=== PATIENT | male | born 1945 | race African-American/Black ===

== ENCOUNTER 2019-12-05 22:24 | Inpatient (IN) | payer OTHER ==
[~2019-12-05] VITALS: Ht 170.2 cm; Wt 78.0 kg
[2019-12-06 00:14] LABS: Basophils # (auto) 0.1 10 ^3/uL (0-0.2); Basophils % (auto) 0.7 % (0.0-2.0); Eosinophils # (auto) 0 10 ^3/uL (0-0.8); Eosinophils % (auto) 0.2 % (0.0-7.0); Hematocrit 35.7 % (41.0-53.0); Hemoglobin 12.1 g/dL (13.5-17.5); Lymphocytes % (auto) 13.4 % (10.0-50.0); Mean Corpuscular Hemoglobin 31.6 pg (28.0-32.0); Mean Corpuscular Hgb Conc. 33.9 g/dL (32.0-36.0); Mean Corpuscular Volume 93.3 fL (80.0-100.0); Monocytes # (auto) 0.4 10 ^3/uL (0-1.3); Monocytes % (auto) 5.8 % (0.0-12.0); Neutrophils # (auto) 6.1 10 ^3/uL (1.6-8.6); Neutrophils % (auto) 79.9 % (37.0-80.0); Nucleated Red Blood Cells % 0.3 %; Platelet Count (auto) 128 10^3/uL (140-450); Red Blood Cells 3.83 10^6/uL (4.5-5.90); White Blood Cell 7.6 10^3/uL (4.4-10.8)
[2019-12-06 00:37] LABS: Alanine Aminotransferase 36 U/L (16-61); Albumin 2.4 g/dL (3.4-5.0); Anion Gap 9 (5-15); BUN/Creatinine Ratio 15.4; Blood Urea Nitrogen 51 mg/dL (7-18); Calcium 8.1 mg/dL (8.5-10.1); Carbon Dioxide 22 mmol/L (21-32); Chloride 103 mmol/L (98-107); GFR African American 24 mL/min; GFR Non-African American 19 mL/min; Glucose 98 mg/dL (74-106); Lactic Acid w/Reflex 2.2 mmol/L (0.4-2.0); Lipase 24 U/L (73-393); Magnesium 2.3 mg/dL (1.6-2.6); Potassium 4.6 mmol/L (3.5-5.1); Sodium 134 mmol/L (136-145)
[2019-12-06 00:52] LABS: Alkaline Phosphatase 79 U/L (45-117); Aspartate Aminotransferase 34 U/L (15-37); Bilirubin, Total 0.5 mg/dL (0.2-1.0); Total Protein 8.2 g/dL (6.4-8.2)
[2019-12-06 01:21] LABS: Lactate Dehydrogenase 261 U/L (87-241)
[2019-12-06 01:23] LABS: CRP High Sensitivity > 19 mg/dL (< 0.3)
[2019-12-06] MEDS ORDERED: AZITHROMYCIN 500MG/ 250ML 250 ML IV ONE (01:45)
[2019-12-06] MEDS ORDERED: SODIUM CHLORIDE 0.9% 1,000 ML IV ONE (02:00)
[2019-12-06 02:09] LABS: Urine Amorphous Crystal MOD /hpf (None Seen); Urine Bacteria MOD /hpf (None Seen); Urine Blood 1+ /uL (Negative); Urine Hyaline Cast FEW /lpf (0 - 2); Urine Mucus FEW (None Seen); Urine Specific Gravity 1.015 (1.001-1.035); Urine WBC 84 /hpf (0 - 3)
[2019-12-06] MEDS ORDERED: cefTRIAXone 1GM/50ML D5W 50 ML IV ONE (03:00)
[2019-12-06] MEDS ORDERED: ACETAMINOPHEN 325 MG TAB PO PRN (06:45)
[2019-12-06] MEDS ORDERED: MORPHINE SULF INJ 2 MG/ML SYRINGE 1ML IV PRN (06:45)
[2019-12-06] MEDS ORDERED: FUROSEMIDE 40 MG/4 ML VIAL IV ONE (06:45)
[2019-12-06] MEDS ORDERED: NITROGLYCERIN 0.4 MG SL TAB SL PRN (06:45)
[2019-12-06 08:25] VITALS: BP 130/74
--- NOTE | 2019-12-06 08:25 | NUR ---
Telemetry admit from [facility] admitted to Telemetry unit after SBAR received. Patient oriented to MOON EISENBERG RN , unit, room 236, bed, and unit policies regarding patient care and visiting hours. Patient now on continuous telemetry monitoring, tele box #13 and telemetry reading on arrival to unit is NSR. Patient weighed by bedscale and encouraged to call if they need any assistance. All questions and concerns addressed, patient verbalized understanding.
[2019-12-06 08:33] VITALS: BP 130/74
[2019-12-06] MEDS: PANTOPRAZOLE 40 MG TAB PO SCH (10:51)
[2019-12-06] MEDS ORDERED: AMIO200T33 PO (12:12)
[2019-12-06] MEDS ORDERED: METO-159 PO (12:17)
[2019-12-06] MEDS ORDERED: ESOM40CA39 PO (12:17)
[2019-12-06] MEDS ORDERED: CEL100T PO (12:17)
[2019-12-06] MEDS: SODIUM CHLORIDE 0.9% 1,000 ML IV SCH (14:45)
--- NOTE | 2019-12-06 15:30 | NUR ---
Called and gave complete SBAR to Allie BECKFORD. Patient is to be transferred to room 218 B
--- NOTE | 2019-12-06 15:45 | NUR ---
Patient taken off unit to be transferred to room 218 B. New Tele Box placed on patient.
[2019-12-06 16:27] LABS: BUN/Creatinine Ratio 15.6; Calcium 8.3 mg/dL (8.5-10.1); Potassium 4.5 mmol/L (3.5-5.1)
[2019-12-06] MEDS ORDERED: FUROSEMIDE 40 MG TAB PO SCH (18:00)
[2019-12-06] MEDS: ALBUTEROL SULF 2.5 MG/0.5ML(0.5%) NEB SOLN NEB SCH (18:14)
[2019-12-06] MEDS: IPRATROPIUM BROM 0.5 MG/2.5ML INH SOL NEB SCH (18:14)
[2019-12-06 18:55] VITALS: BP 130/74
--- NOTE | 2019-12-06 19:30 | NUR ---
Opening Shift Note Assumed care of patient, awake and alert. No S/S of distress/SOB or pain. Instructed on POC and to call for assist PRN, will continue to monitor for changes Q1hr and PRN.
[2019-12-06] MEDS: ONDANSETRON HCL 4 MG/2 ML VIAL IV PRN (21:03)
[2019-12-06 22:00] VITALS: BP 134/71
[2019-12-06] MEDS: METOPROLOL TARTRATE 25 MG TAB PO SCH (22:37)
[2019-12-06] MEDS: HYDROcodone-ACET 5/325MG TAB PO PRN (22:53)
[2019-12-06] MEDS: TEMAZEPAM 15 MG CAP PO PRN (22:54)
[2019-12-07] MEDS: IPRATROPIUM BROM 0.5 MG/2.5ML INH SOL NEB SCH ×5 (00:07→23:59)
[2019-12-07] MEDS: ALBUTEROL SULF 2.5 MG/0.5ML(0.5%) NEB SOLN NEB SCH ×5 (00:07→23:59)
[2019-12-07] MEDS: SODIUM CHLORIDE 0.9% 1,000 ML IV SCH ×2 (04:23→16:58)
[2019-12-07 05:42] VITALS: BP 101/53
[2019-12-07 07:13] LABS: Basophils # (auto) 0.1 10 ^3/uL (0-0.2); Basophils % (auto) 1.7 % (0.0-2.0); Eosinophils # (auto) 0.1 10 ^3/uL (0-0.8); Eosinophils % (auto) 1.7 % (0.0-7.0); Hematocrit 34.2 % (41.0-53.0); Hemoglobin 11.6 g/dL (13.5-17.5); Lymphocytes # (auto) 1.5 10 ^3/uL (0.4-5.4); Lymphocytes % (auto) 22.6 % (10.0-50.0); Mean Corpuscular Hemoglobin 31.8 pg (28.0-32.0); Mean Corpuscular Volume 93.5 fL (80.0-100.0); Monocytes # (auto) 0.5 10 ^3/uL (0-1.3); Neutrophils # (auto) 4.3 10 ^3/uL (1.6-8.6); Nucleated Red Blood Cells % 0.1 %; Platelet Count (auto) 100 10^3/uL (140-450); Red Blood Cells 3.66 10^6/uL (4.5-5.90); Red Cell Distribution Width 15.3 % (11.8-14.3); White Blood Cell 6.4 10^3/uL (4.4-10.8)
[2019-12-07 07:18] LABS: BUN/Creatinine Ratio 18.4; Potassium 4.1 mmol/L (3.5-5.1)
--- NOTE | 2019-12-07 07:40 | NUR ---
Opening Shift Note Assumed care of patient, awake and alert. No S/S of distress/SOB or pain. Instructed on POC and to call for assist PRN, will continue to monitor for changes Q1hr and PRN. Bed locked in lowest position with two side rails up and call light in reach.
[2019-12-07 08:00] VITALS: BP 104/71
[2019-12-07 09:38] VITALS: BP 104/71
[2019-12-07] MEDS: METOPROLOL TARTRATE 25 MG TAB PO SCH (10:00)
[2019-12-07] MEDS ORDERED: ASPirin 81 mg TAB PO SCH (10:00)
[2019-12-07] MEDS: AMIODARONE HCL 200 MG TAB PO SCH (10:36)
[2019-12-07] MEDS: PANTOPRAZOLE 40 MG TAB PO SCH (10:36)
[2019-12-07] MEDS: cefTRIAXone 1GM/50ML D5W 50 ML IV SCH (10:36)
--- NOTE | 2019-12-07 11:00 | NUR ---
BP MEDICATION HELD DR BOOGIE AWARE. PATIENTS BP IS CURRENTLY 104/71
[2019-12-07 12:55] VITALS: BP 124/68
--- NOTE | 2019-12-07 13:20 | NUR ---
NEW ORDERS RECEIVED FROM DR ALANIS FOR DIGOXIN. WILL IMPLEMENT ORDERS.
[2019-12-07] MEDS ORDERED: DIGOXIN (250MCG/ML) 2 ML AMPULE IV ONE ×2 (15:30→17:30)
[2019-12-07 16:43] VITALS: BP 118/68
[2019-12-07] MEDS: DIGOXIN (250MCG/ML) 2 ML AMPULE IV ONE ×2 (18:42→18:55)
--- NOTE | 2019-12-07 19:40 | NUR ---
Opening Shift Note Assumed care of patient, awake and alert. No S/S of distress/SOB. On room air and ambulatory with walker. Bed in lowest locked position, side rails up x2, call light within reach. Instructed on POC and to call for assist PRN, will continue to monitor for changes Q1hr and PRN.
[2019-12-07] MEDS: HYDROcodone-ACET 5/325MG TAB PO PRN (19:48)
[2019-12-07 22:00] VITALS: BP 115/53
[2019-12-07] MEDS: TEMAZEPAM 15 MG CAP PO PRN (22:01)
[2019-12-08 05:00] VITALS: BP 144/74
[2019-12-08] MEDS: SODIUM CHLORIDE 0.9% 1,000 ML IV SCH (06:46)
[2019-12-08 06:52] LABS: Potassium 4.5 mmol/L (3.5-5.1)
[2019-12-08 07:17] LABS: BUN/Creatinine Ratio 17.7; Calcium 8.2 mg/dL (8.5-10.1)
--- NOTE | 2019-12-08 07:30 | NUR ---
Opening Shift Note Assumed care of patient, awake and alert. No S/S of distress/SOB or pain. Bed is low, locked with 2x side rails up. Call light is within reach. Instructed on POC and to call for assist PRN, will continue to monitor for changes Q1hr and PRN.
[2019-12-08] MEDS: IPRATROPIUM BROM 0.5 MG/2.5ML INH SOL NEB SCH ×4 (07:57→23:47)
[2019-12-08] MEDS: ALBUTEROL SULF 2.5 MG/0.5ML(0.5%) NEB SOLN NEB SCH ×4 (07:57→23:47)
[2019-12-08] MEDS: PANTOPRAZOLE 40 MG TAB PO SCH (08:03)
[2019-12-08 09:00] VITALS: BP_SYST 134; BP_SYST 142; BP_DIAS 71; BP_DIAS 72
[2019-12-08] MEDS: AMIODARONE HCL 200 MG TAB PO SCH (09:17)
[2019-12-08] MEDS: cefTRIAXone 1GM/50ML D5W 50 ML IV SCH (09:17)
--- NOTE | 2019-12-08 10:34 | NUR ---
IV insertion IV access obtained, via clean sterile technique by inserting a 22 gauge catheter at the left FA after 2 attempt(s). IV secured properly. No trauma to site. Patient tolerated well. 20G L AC discontinued. Catheter fully intact.
[2019-12-08] MEDS ORDERED: DOXA4TAB5 PO (11:42)
--- NOTE | 2019-12-08 11:42 | NUR ---
Paging Dr. Torres New orders received to insert Haddad catheter for this patient. This nurse informed patient of doctor's orders to insert haddad catheter due to retention. Bladder scan revealed a residual of 297 ml of urine. Patient states that he takes Doxazosin 4mg twice a day and he would like to try medication before inserting haddad catheter. 1147 Dr. Torres at nurses station, informed her of patient's concerns. Dr. Torres at patient's bedside and discussed importance for haddad catheter insertion. Patient agrees at this time. Will carry out orders.
[2019-12-08] MEDS ORDERED: ENOXAPARIN SOD 80 MG/0.8ML SYRINGE SC ONE (11:45)
--- NOTE | 2019-12-08 11:50 | NUR ---
Family Update Spoke with Cici (Sister) after password was verified. Updated Cici on POC; all questions have been answered. New contact info: [phone]
--- NOTE | 2019-12-08 12:30 | NUR ---
Haddad catheter insertion Patient assessed and determined to be in need of haddad catheter. Order obtained from MD. Patient educated on catheter and reason for insertion. All questions answered. Haddad catheter 16 gauge Mohawk inserted with clean sterile technique. Patient tolerated well. 250ml of urine drained. Noted some sediment. Will continue to monitor.
--- NOTE | 2019-12-08 12:33 | NUR ---
Dr. Castellon (Urology) at bedside Dr. Castellon at patient's bedside for urology consult. MD updated patient on POC. All questions answered. Will continue to monitor.
[2019-12-08 13:00] VITALS: BP 139/77
[2019-12-08 16:30] VITALS: BP 158/66
[2019-12-08] MEDS: TAMSULOSIN HYDROCHLORIDE 0.4 MG CAP PO SCH (17:48)
--- NOTE | 2019-12-08 20:00 | NUR ---
Opening Shift Note Assumed care of patient, awake and alert. No S/S of distress/SOB or pain. InsTructed on POC and to call for assist PRN, will continue to monitor for changes Q1hr and PRN.
[2019-12-08 22:00] VITALS: BP 155/72
[2019-12-09 05:00] VITALS: BP 165/74
--- NOTE | 2019-12-09 05:00 | NUR ---
Called/paged Rose Pedraaz called re:blood pressure of 165/74, no blood pressure med. . Waiting for call back. Continue care.
--- NOTE | 2019-12-09 05:54 | NUR ---
returned call Marleen Cadet returned call, updated on patient status and reason for call, orders received of clonidine 0.1mg.p.o x one. Continue care.
[2019-12-09] MEDS ORDERED: cloNIDine HCL 0.1 MG TAB PO ONE (06:00)
[2019-12-09] MEDS: IPRATROPIUM BROM 0.5 MG/2.5ML INH SOL NEB SCH ×2 (06:14→19:21)
[2019-12-09] MEDS: ALBUTEROL SULF 2.5 MG/0.5ML(0.5%) NEB SOLN NEB SCH ×2 (06:14→19:21)
[2019-12-09 06:17] LABS: Potassium 4.5 mmol/L (3.5-5.1)
[2019-12-09 06:24] LABS: BUN/Creatinine Ratio 17.1; Calcium 8.4 mg/dL (8.5-10.1)
--- NOTE | 2019-12-09 07:18 | NUR ---
Report given to Pat Lopez, patient is resting no distress.
--- NOTE | 2019-12-09 07:20 | NUR ---
Patient in bed, resting quietly, on O2 at 3 LPM, no acute distress noted. FWW from home at bedside. On Ramirez catheter draining clear, yellowish urine.
[2019-12-09 08:00] VITALS: BP 132/73
[2019-12-09 09:01] VITALS: BP 132/73
[2019-12-09] MEDS: AMIODARONE HCL 200 MG TAB PO SCH (09:32)
[2019-12-09] MEDS: FINASTERIDE 5 MG TAB PO SCH (09:32)
[2019-12-09] MEDS: PANTOPRAZOLE 40 MG TAB PO SCH (09:32)
[2019-12-09] MEDS: cefTRIAXone 1GM/50ML D5W 50 ML IV SCH (09:32)
--- NOTE | 2019-12-09 09:34 | NUR ---
Sushil Lua at bedside. spoke w/ the patient that she will [facility] if patient can go home w/ Ramirez catheter, patient or possible discharge tomorrow, Thursday.
[2019-12-09] MEDS: DIGOXIN (250MCG/ML) 2 ML AMPULE IV SCH (09:39)
[2019-12-09] MEDS ORDERED: METOPROLOL TARTRATE 50 MG TAB PO SCH (10:00)
[2019-12-09] MEDS ORDERED: ENOXAPARIN SOD 80 MG/0.8ML SYRINGE SC SCH (10:00)
[2019-12-09] MEDS ORDERED: DIGO0.1220 PO (10:33)
[2019-12-09] MEDS ORDERED: APIX5TAB PO (10:33)
[2019-12-09 12:34] VITALS: BP 156/74
--- NOTE | 2019-12-09 12:56 | NUR ---
Patient complained of wheezing. Paged the RT.
--- NOTE | 2019-12-09 12:58 | NUR ---
Respiratory Therapist called back that the MD discontinued the order for breathing treatment.
--- NOTE | 2019-12-09 12:59 | NUR ---
Paged Sushil Lua
--- NOTE | 2019-12-09 13:02 | NUR ---
Dr. Torres called back. made aware patient complained of wheezing, breathing treatment order was discontinued. MD to put in order for breathing treatment.
[2019-12-09] MEDS ORDERED: IPRATROPIUM BROM 0.5 MG/2.5ML INH SOL NEB PRN (13:15)
[2019-12-09] MEDS ORDERED: ALBUTEROL SULF 2.5 MG/0.5ML(0.5%) NEB SOLN NEB PRN (13:15)
--- NOTE | 2019-12-09 14:27 | NUR ---
Nutrition Assessment Notes Please refer to link for full assessment notes. Est Energy needs: 3335-1579 kcals (25-30 kcal/kgBW) Est Protein needs: 47-59 gms/day (0.6-0.75 gm/kgBW) d/t pt with Stg 4 CKD Will continue to monitor and reassess prn. Addendum: 12/09/19 at [address] Amended: Links added. Addendum: 12/09/19 at [address] Additional Recommendation Suggest a Renal Specific 55gPro,2gNa,K2,lowphos diet
--- NOTE | 2019-12-09 16:40 | NUR ---
D/C Planning Per SS consult for home health haddad care. Faxed clinical information to [facility], [facility], and [facility] phone. Per Fides with [facility] patient has been accepted and service to start within 24-48hrs upon d/c day. NAEEM Pak will obtain authorization from [facility].
[2019-12-09 16:41] VITALS: BP 148/71
--- NOTE | 2019-12-09 16:44 | NUR ---
[facility] phone [phone]
[2019-12-09] MEDS: TAMSULOSIN HYDROCHLORIDE 0.4 MG CAP PO SCH (18:16)
--- NOTE | 2019-12-09 19:25 | NUR ---
Respiratory note: AT BEDSIDE FOR MED RIO DOAN.
--- NOTE | 2019-12-09 19:47 | NUR ---
Opening Shift Note Assumed care of patient, awake and alert. No S/S of distress/SOB or pain. Patient reports no history of falls, walker at bedside. Informed patient to call for assistance when needing the restroom to assess gait. patient verbalized understanding. Instructed on POC and to call for assist PRN, will continue to monitor for changes Q1hr and PRN. Bed in low position call light within reach.
--- NOTE | 2019-12-09 21:10 | NUR ---
Spoke with Cici pollack sister of patient.Cici was able to provide password. Cici reported she did not receive update on poc of patient the past days. Cici updated on POC. Cici requesting if patient is discharged tomorrow 12/10/19, patient to be discharged within the hours of 1200 -1400 as this is the time she is available. Informed Cici rn [email or web address] will be notified of her request. Will endorse care to dayshift RN. All questions and concerns answered. Patient reported no further questions.
[2019-12-09 22:00] VITALS: BP 148/68
[2019-12-09] MEDS: ONDANSETRON HCL 4 MG/2 ML VIAL IV PRN (22:15)
[2019-12-09] MEDS: APIXABAN 5 MG TAB PO SCH (22:15)
[2019-12-10] VITALS (7 sets, daily range): BP systolic 135–164; BP diastolic 65–81
[2019-12-10] MEDS: ALBUTEROL SULF 2.5 MG/0.5ML(0.5%) NEB SOLN NEB SCH ×4 (00:29→18:27)
[2019-12-10] MEDS: IPRATROPIUM BROM 0.5 MG/2.5ML INH SOL NEB SCH ×4 (00:29→18:27)
[2019-12-10] MEDS: ONDANSETRON HCL 4 MG/2 ML VIAL IV PRN (04:23)
[2019-12-10] MEDS: HYDROcodone-ACET 5/325MG TAB PO PRN (04:29)
--- NOTE | 2019-12-10 06:43 | NUR ---
patient rounds patient is awake and alert. denies sob distress or pain. patient resting in bed. bed in low position and call light within reach,
--- NOTE | 2019-12-10 07:04 | NUR ---
REPORT GIVEN TO DAYSHIFT RN PATIENT DENIES SOB DISTRESS OR PAIN
[2019-12-10] MEDS: APIXABAN 5 MG TAB PO SCH ×2 (10:21→21:50)
[2019-12-10] MEDS: cefTRIAXone 1GM/50ML D5W 50 ML IV SCH (10:21)
[2019-12-10] MEDS: FINASTERIDE 5 MG TAB PO SCH (10:22)
[2019-12-10] MEDS: PANTOPRAZOLE 40 MG TAB PO SCH (10:22)
[2019-12-10] MEDS: AMIODARONE HCL 200 MG TAB PO SCH (10:23)
--- NOTE | 2019-12-10 13:20 | NUR ---
Attempted PT eval, pt requested to return later in the afternoon. Will attempt again.
--- NOTE | 2019-12-10 18:30 | NUR ---
RT NOTE PT WAS SEEN BY RT FOR HHN TX. PT TOLERATES WELL VIA MASK. NO ADVERSE REACTION NOTED. CONT ORDERED Addendum: 12/10/19 at 1831 by Cristina Omalley RT Amended: Links added.
[2019-12-10] MEDS: TAMSULOSIN HYDROCHLORIDE 0.4 MG CAP PO SCH (18:47)
[2019-12-10 19:14] LABS: Protein, Urine 73.3 mg/dL (0.0-11.9)
--- NOTE | 2019-12-10 19:35 | NUR ---
Opening Shift Note Assumed care of patient, awake and alert. No S/S of distress/SOB or pain noted. Bed is in lowest locked position with bed rails up x2 and call light is within reach of the patient. Instructed on POC and to call for assist PRN.
[2019-12-11] MEDS: ALBUTEROL SULF 2.5 MG/0.5ML(0.5%) NEB SOLN NEB SCH ×4 (00:44→18:40)
[2019-12-11] MEDS: IPRATROPIUM BROM 0.5 MG/2.5ML INH SOL NEB SCH ×4 (00:44→18:40)
--- NOTE | 2019-12-11 00:45 | NUR ---
RT NOTE PT WAS SEEN BY RT FOR HHN TX. PT TOLERATES WELL VIA MASK. NO ADVERSE REACTION NOTED. PT STATES HIS NOSE IS REALLY DRY FROM THE O2. BUBBLE HUMIDIFIER PROVIDED. CONT ORDERED Addendum: 12/11/19 at 0114 by Cristina Omalley RT Amended: Links added.
[2019-12-11] MEDS ORDERED: LIDOCAINE 1% HCL (LOCAL ANESTH.) INJ 20ML MDV ONE (04:55)
[2019-12-11 05:00] VITALS: BP 148/68
[2019-12-11] MEDS: HYDROcodone-ACET 5/325MG TAB PO PRN ×2 (05:44→17:05)
[2019-12-11 07:34] LABS: Calcium 8.4 mg/dL (8.5-10.1); Potassium 4.8 mmol/L (3.5-5.1)
[2019-12-11 07:35] LABS: BUN/Creatinine Ratio 16.9
--- NOTE | 2019-12-11 07:45 | NUR ---
Opening shift note Assumed care of patient from NOC ANALY Preston. Patient is AOx4 no s/s of distress noted. Bed is in lowest locked position, side rails up x2, and call light is within reach. Updated patient on plan of care and patient verbalized understanding. Will continue to monitor q1hr and PRN.
[2019-12-11 09:09] VITALS: BP 143/70
--- NOTE | 2019-12-11 10:05 | NUR ---
Physician trena Munoz at bedside, updated him on patient status. New new orders received. Will continue care. Addendum: 12/11/19 at 1020 by DENNISE KOHLER RN No new orders received.
[2019-12-11] MEDS: PANTOPRAZOLE 40 MG TAB PO SCH (11:13)
[2019-12-11] MEDS: APIXABAN 5 MG TAB PO SCH ×2 (11:13→21:44)
[2019-12-11] MEDS: FINASTERIDE 5 MG TAB PO SCH (11:13)
[2019-12-11] MEDS: cefTRIAXone 1GM/50ML D5W 50 ML IV SCH (11:13)
[2019-12-11] MEDS: AMIODARONE HCL 200 MG TAB PO SCH (11:14)
[2019-12-11 12:56] VITALS: BP 147/73
[2019-12-11 16:57] VITALS: BP 150/73
--- NOTE | 2019-12-11 17:00 | NUR ---
PAIN Patient verbalized feeling medial abdominal pain of 8/10, not resting comfortable in bed. Patient also stated feeling nauseated. Will administer ordered PRN medications for pain and nausea, will continue care.
[2019-12-11] MEDS: ONDANSETRON HCL 4 MG/2 ML VIAL IV PRN (17:05)
[2019-12-11] MEDS: TAMSULOSIN HYDROCHLORIDE 0.4 MG CAP PO SCH (17:06)
--- NOTE | 2019-12-11 18:00 | NUR ---
temperature assessment and cooling measures Patient has a temperature of 99.8. Cooling measures applied.
--- NOTE | 2019-12-11 18:35 | NUR ---
Temperature reassessment Patients temperature is now 98.5. Patient is laying comfortably in bed, so signs and symptoms of distress noted.
--- NOTE | 2019-12-11 19:25 | NUR ---
END OF SHIFT NOTE Endorsed care to NOC ANALY Preston, no s/s of distress noted.
[2019-12-11 23:50] VITALS: BP 133/67
[2019-12-12] MEDS: ALBUTEROL SULF 2.5 MG/0.5ML(0.5%) NEB SOLN NEB SCH ×3 (00:35→11:50)
[2019-12-12] MEDS: IPRATROPIUM BROM 0.5 MG/2.5ML INH SOL NEB SCH ×3 (00:35→11:50)
[2019-12-12 05:56] VITALS: BP 147/69
[2019-12-12] MEDS: HYDROcodone-ACET 5/325MG TAB PO PRN (06:30)
[2019-12-12 06:31] LABS: Potassium 5.1 mmol/L (3.5-5.1)
[2019-12-12] MEDS: ONDANSETRON HCL 4 MG/2 ML VIAL IV PRN (06:31)
[2019-12-12 06:47] LABS: BUN/Creatinine Ratio 14.9; Calcium 8.4 mg/dL (8.5-10.1)
[2019-12-12 08:00] VITALS: BP 140/74
[2019-12-12] MEDS: cefTRIAXone 1GM/50ML D5W 50 ML IV SCH (09:17)
[2019-12-12] MEDS ORDERED: CIPR-173 PO (09:33)
[2019-12-12] MEDS: AMIODARONE HCL 200 MG TAB PO SCH (09:53)
[2019-12-12] MEDS: FINASTERIDE 5 MG TAB PO SCH (09:53)
[2019-12-12] MEDS: APIXABAN 5 MG TAB PO SCH (09:53)
[2019-12-12] MEDS: DIGOXIN (250MCG/ML) 2 ML AMPULE IV SCH (09:53)
[2019-12-12] MEDS: PANTOPRAZOLE 40 MG TAB PO SCH (09:54)
[2019-12-12] MEDS ORDERED: METO-6 PO (11:17)
[2019-12-12 12:00] VITALS: BP 126/73
--- NOTE | 2019-12-12 12:37 | NUR ---
Discharge/ Digoxin level, MD notified Went over discharge instructions with patient and family member. Prescriptions were called in to [facility] patient's pharmacy, by Dr. Torres. Patient was informed to pick them up and to stop Celexa as ordered by MD. IV was removed intact, no problems. Telemetry was removed and sent to ICU per hospital protocol. Ramirez catheter was left in per MD orders as patient will receive [facility] for Ramirez care after discharge. Retrieved patient's medications from our pharmacy and gave them to the patient, who also signed the paperwork. Assisted patient in dressing and provided a leg bag for the Ramirez catheter. * Dr. Torres was notified of the patient's Digoxin level this morning as reported by laboratory right after patient had received Digoxin for the day. Patient is to follow up with his PCP as soon as possible per discharge instructions.
== END 2019-12-12 14:10 | disposition home health service (06) | DRG 871 ==
LOC: ER 22:25 → TELE 22:26 → TELE-EAST 12-06 08:49 → TELE-CENTR 12-06 15:40
PROVIDERS: ADMIT Nurse Practitioner; ATTEND Internal Medicine
DX: A41.51 Sepsis due to Escherichia coli [E. coli] (principal); N17.0 Acute kidney failure with tubular necrosis; E43 Unspecified severe protein-calorie malnutrition; I50.31 Acute diastolic (congestive) heart failure; N10 Acute pyelonephritis; N18.4 Chronic kidney disease, stage 4 (severe); E87.1 Hypo-osmolality and hyponatremia; I13.0 Hypertensive heart and chronic kidney disease with heart failure and stage 1 through stage 4 chronic kidney disease, or unspecified chronic kidney disease; N13.8 Other obstructive and reflux uropathy; N40.1 Benign prostatic hyperplasia with lower urinary tract symptoms; R33.8 Other retention of urine; I48.0 Paroxysmal atrial fibrillation; D17.9 Benign lipomatous neoplasm, unspecified; E78.5 Hyperlipidemia, unspecified; T39.395A Adverse effect of other nonsteroidal anti-inflammatory drugs [NSAID], initial encounter; F17.210 Nicotine dependence, cigarettes, uncomplicated; N32.0 Bladder-neck obstruction; Z85.46 Personal history of malignant neoplasm of prostate; Z92.3 Personal history of irradiation; Z88.0 Allergy status to penicillin; Y92.89 Other specified places as the place of occurrence of the external cause; Z68.26 Body mass index [BMI] 26.0-26.9, adult; Z20.828 Contact with and (suspected) exposure to other viral communicable diseases
CPT/HCPCS: 36415; 71045; 74176; 76775; 78582; 80048; 80053; 80162; 81001; 82306; 82570; 82728; 83605; 83615; 83690; 83735; 83880; 83970; 84100; 84156; 84300; 84443; 84484; 85025; 85379; 86141; 87040; 87070; 87077; 87086; 87088; 87186; 87804; 87880; 93005; 93306; 93970; 94640; 96365; 96366; 96368; 96375; 97163; G0378; J0696; J2001; J2405

== ENCOUNTER 2019-12-28 15:12 | Inpatient (IN) | payer OTHER, MEDICAID ==
[~2019-12-28] VITALS: Ht 170.2 cm; Wt 34.9 kg
[~2019-12-28 15:12] MED LIST: AMIO200T33 PO; APIX5TAB PO; CIPR-173 PO; DOXA4TAB5 PO; ESOM40CA39 PO; METO-6 PO
[2019-12-28] MEDS ORDERED: SODIUM CHLORIDE 0.9% 1,000 ML IVB ONE (16:48)
[2019-12-28 17:59] LABS: Basophils # (auto) 0.1 10 ^3/uL (0-0.2); Basophils % (auto) 0.9 % (0.0-2.0); Eosinophils # (auto) 0.3 10 ^3/uL (0-0.8); Eosinophils % (auto) 3.5 % (0.0-7.0); Hematocrit 28.6 % (41.0-53.0); Hemoglobin 9.4 g/dL (13.5-17.5); Lymphocytes # (auto) 1.6 10 ^3/uL (0.4-5.4); Lymphocytes % (auto) 21.8 % (10.0-50.0); Mean Corpuscular Hemoglobin 30.4 pg (28.0-32.0); Mean Corpuscular Hgb Conc. 33.1 g/dL (32.0-36.0); Mean Corpuscular Volume 91.9 fL (80.0-100.0); Monocytes # (auto) 0.7 10 ^3/uL (0-1.3); Monocytes % (auto) 8.7 % (0.0-12.0); Neutrophils # (auto) 4.8 10 ^3/uL (1.6-8.6); Neutrophils % (auto) 65.1 % (37.0-80.0); Nucleated Red Blood Cells % 0.1 %; Platelet Count (auto) 274 10^3/uL (140-450); Red Blood Cells 3.11 10^6/uL (4.5-5.90); Red Cell Distribution Width 14.4 % (11.8-14.3); White Blood Cell 7.4 10^3/uL (4.4-10.8)
[2019-12-28 18:07] LABS: Urine Bacteria FEW /hpf (None Seen); Urine Blood TRACE /uL (Negative); Urine Hyaline Cast FEW /lpf (0 - 2); Urine Specific Gravity 1.009 (1.001-1.035); Urine WBC 60 /hpf (0 - 3)
[2019-12-28 18:23] LABS: Albumin 2.4 g/dL (3.4-5.0); BUN/Creatinine Ratio 10.2; Calcium 8.1 mg/dL (8.5-10.1); Magnesium 2.2 mg/dL (1.6-2.6); Potassium 4.2 mmol/L (3.5-5.1)
[2019-12-28 18:26] LABS: Bilirubin, Total 0.3 mg/dL (0.2-1.0); Total Protein 8.5 g/dL (6.4-8.2)
[2019-12-28] MEDS ORDERED: cefTRIAXone 1GM/50ML D5W 50 ML IV ONE (19:45)
[2019-12-28] MEDS ORDERED: TEMAZEPAM 15 MG CAP PO PRN (21:45)
[2019-12-28] MEDS ORDERED: HYDROcodone-ACET 5/325MG TAB PO PRN (21:45)
[2019-12-28] MEDS ORDERED: ONDANSETRON HCL 4 MG/2 ML VIAL IV PRN (21:45)
[2019-12-28] MEDS ORDERED: ACETAMINOPHEN 325 MG TAB PO PRN (21:45)
[2019-12-28 22:34] LABS: INR 1.23 (0.9-1.15); Partial Thromboplastin Time 33.2 sec (23.64-32.05)
[2019-12-28] MEDS: DOXAZOSIN MESYL 2 MG TAB PO ONE (23:15)
[2019-12-28 23:30] VITALS: BP 148/77
--- NOTE | 2019-12-28 23:30 | NUR ---
MS admit from [facility] admitted to tele/MS after SBAR received. Patient oriented to Megan Manrique, primary RN, unit, room, bed, and unit policies regarding patient care and visiting hours. Patient weighed by bedscale and encouraged to call if they need something. All questions and concerns addressed, patient verbalized understanding. Note:
[2019-12-29] MEDS: DOXAZOSIN MESYL 2 MG TAB PO ONE
[2019-12-29 05:00] VITALS: BP 119/66
[2019-12-29 07:32] LABS: Hematocrit 27.7 % (41.0-53.0); Hemoglobin 9.2 g/dL (13.5-17.5); Mean Corpuscular Hemoglobin 30.3 pg (28.0-32.0); Mean Corpuscular Hgb Conc. 33.3 g/dL (32.0-36.0); Mean Corpuscular Volume 91.1 fL (80.0-100.0); Platelet Count (auto) 290 10^3/uL (140-450); Red Blood Cells 3.04 10^6/uL (4.5-5.90); Red Cell Distribution Width 14.6 % (11.8-14.3); White Blood Cell 7.1 10^3/uL (4.4-10.8)
[2019-12-29 07:38] LABS: Band Neutrophils % (manual) 0; Basophils % (manual) 0 (0.0-2.0); Blast Cells 0; Metamyelocytes % 0; Myelocytes % 0; Promyelocytes % 0
--- NOTE | 2019-12-29 07:50 | NUR ---
OPENING NOTE ASSUMED CARE OF PT. ALERT AND ORIENTED. NO S/S OF SOB/DISTRESS NOTED. BED SET TO LOWEST POSITION/LOCKED, BEDSIDE RAILS UP X2, CALL LIGHT WITHIN REACH. INSTRUCTED PT TO CALL FOR ASSISTANCE. UPDATED ON POC. WILL CONTINUE TO MONITOR Q1HR AND PRN.
[2019-12-29 08:10] LABS: Eosinophils % (manual) 3 (0-7); Lymphocytes % (manual) 31 (10.0-50.0); Monocytes % (manual) 5 (0-12); Reactive Lymphocytes 4
[2019-12-29 08:17] LABS: Calcium 8.1 mg/dL (8.5-10.1); Potassium 4.3 mmol/L (3.5-5.1)
[2019-12-29 08:21] LABS: BUN/Creatinine Ratio 10.3
[2019-12-29] MEDS ORDERED: cefTRIAXone 1GM/50ML D5W 50 ML IV SCH (09:00)
[2019-12-29 09:11] VITALS: BP 148/77
[2019-12-29] MEDS ORDERED: DOXAZOSIN MESYL 2 MG TAB PO SCH (10:00)
[2019-12-29] MEDS ORDERED: PANTOPRAZOLE 40 MG TAB PO SCH (10:00)
[2019-12-29] MEDS ORDERED: AMIODARONE HCL 200 MG TAB PO SCH (10:00)
[2019-12-29] MEDS ORDERED: METOPROLOL SUCCINATE XL 50 MG TAB PO SCH (10:00)
[2019-12-29] MEDS: APIXABAN 5 MG TAB PO SCH ×2 (10:28)
[2019-12-29 13:00] VITALS: BP 123/66
[2019-12-29] MEDS ORDERED: DOCU-94 PO (14:01)
[2019-12-29] MEDS ORDERED: DOCUSATE SOD 100 MG CAP PO PRN (14:15)
[2019-12-29] MEDS ORDERED: LACTULOSE 20Gm/30ML SOLN PO ONE (14:15)
[2019-12-29 16:09] VITALS: BP 123/66
[2019-12-29] MEDS ORDERED: MUPI2OIN2 EX (16:29)
--- NOTE | 2019-12-29 17:26 | NUR ---
Discharge Discharge instructions given as ordered. Patient is to call and schedule follow up appointment with primary care doctor. Patient is to pick prescription at his preferred pharmacy. All questions and concerns addressed. Patient verbalized understanding. IV removed with catheter intact, pressure dressing applied. Patient taken to vehicle via wheelchair with all personal belongings, accompanied by staff and family member. No distress noted at time of departure.
== END 2019-12-29 17:51 | disposition home or self-care (01) | DRG 726 ==
LOC: ER 15:12 → OVERFLOW 15:13 → CENTRAL 23:18
PROVIDERS: ADMIT Nurse Practitioner; ATTEND Internal Medicine
DX: N40.1 Benign prostatic hyperplasia with lower urinary tract symptoms (principal); I13.0 Hypertensive heart and chronic kidney disease with heart failure and stage 1 through stage 4 chronic kidney disease, or unspecified chronic kidney disease; I48.20 Chronic atrial fibrillation, unspecified; E44.1 Mild protein-calorie malnutrition; R33.8 Other retention of urine; N18.3 Chronic kidney disease, stage 3 (moderate); F17.210 Nicotine dependence, cigarettes, uncomplicated; I50.9 Heart failure, unspecified; Z96.659 Presence of unspecified artificial knee joint; K21.9 Gastro-esophageal reflux disease without esophagitis; D63.1 Anemia in chronic kidney disease; I95.9 Hypotension, unspecified; Z88.0 Allergy status to penicillin; K59.00 Constipation, unspecified; Z22.322 Carrier or suspected carrier of Methicillin resistant Staphylococcus aureus
CPT/HCPCS: 36415; 80048; 80053; 81001; 83690; 83735; 85007; 85025; 85027; 85610; 85730; 87081; 87086; 93005; 96361; 96365; G0378; J0696

== ENCOUNTER 2020-01-02 13:00 | Emergency (ER) | payer OTHER, MEDICAID ==
[~2020-01-02] VITALS: Ht 170.2 cm; Wt 77.1 kg
[~2020-01-02 13:00] MED LIST changes: -CIPR-173 PO; +DOCU-94 PO; +MUPI2OIN2 EX
[2020-01-02] MEDS ORDERED: SODIUM CHLORIDE 0.9% 1,000 ML IV ONE ×2 (13:23)
[2020-01-02 14:02] LABS: Basophils # (auto) 0 10 ^3/uL (0-0.2); Basophils % (auto) 0.6 % (0.0-2.0); Eosinophils # (auto) 0.2 10 ^3/uL (0-0.8); Hematocrit 29.6 % (41.0-53.0); Hemoglobin 9.9 g/dL (13.5-17.5); Lymphocytes # (auto) 1.5 10 ^3/uL (0.4-5.4); Lymphocytes % (auto) 21.5 % (10.0-50.0); Mean Corpuscular Hemoglobin 30.9 pg (28.0-32.0); Mean Corpuscular Hgb Conc. 33.6 g/dL (32.0-36.0); Mean Corpuscular Volume 92.1 fL (80.0-100.0); Monocytes # (auto) 0.6 10 ^3/uL (0-1.3); Monocytes % (auto) 8.8 % (0.0-12.0); Neutrophils # (auto) 4.6 10 ^3/uL (1.6-8.6); Neutrophils % (auto) 66.1 % (37.0-80.0); Platelet Count (auto) 236 10^3/uL (140-450); Red Blood Cells 3.22 10^6/uL (4.5-5.90); Red Cell Distribution Width 14.9 % (11.8-14.3)
[2020-01-02 14:16] LABS: INR 1.2 (0.9-1.15); Partial Thromboplastin Time 33.1 sec (23.64-32.05)
[2020-01-02 14:18] LABS: Albumin 2.6 g/dL (3.4-5.0); Anion Gap 5 (5-15); Blood Urea Nitrogen 20 mg/dL (7-18); Calcium 8.6 mg/dL (8.5-10.1); Carbon Dioxide 22 mmol/L (21-32); Chloride 112 mmol/L (98-107); Glucose 92 mg/dL (74-106); Potassium 4.5 mmol/L (3.5-5.1); Sodium 139 mmol/L (136-145)
[2020-01-02 14:23] LABS: Alanine Aminotransferase 15 U/L (16-61); Alkaline Phosphatase 104 U/L (45-117); Aspartate Aminotransferase 14 U/L (15-37); BUN/Creatinine Ratio 8.7; Bilirubin, Total 0.2 mg/dL (0.2-1.0); GFR African American 36 mL/min; GFR Non-African American 29 mL/min; Total Protein 9.3 g/dL (6.4-8.2)
[2020-01-02] MEDS ORDERED: CIPROFLOXACIN 400MG/200ML 200 ML IV ONE (15:00)
[2020-01-02 15:04] VITALS: BP 120/56
== END 2020-01-02 17:53 | disposition home or self-care (01) ==
LOC: ER 13:00
DX: I10 Essential (primary) hypertension (principal); E44.0 Moderate protein-calorie malnutrition; D64.9 Anemia, unspecified; R31.9 Hematuria, unspecified; K92.1 Melena; I48.91 Unspecified atrial fibrillation; I11.0 Hypertensive heart disease with heart failure; I50.9 Heart failure, unspecified; K21.9 Gastro-esophageal reflux disease without esophagitis; F17.210 Nicotine dependence, cigarettes, uncomplicated; Z68.26 Body mass index [BMI] 26.0-26.9, adult; Z79.899 Other long term (current) drug therapy; Z88.0 Allergy status to penicillin
CPT/HCPCS: 36415; 51702; 71045; 74176; 80053; 84154; 84484; 85025; 85610; 85730; 96361; 96365; 99285; J0744; J7030

== ENCOUNTER 2020-01-05 02:18 | Emergency (ER) | payer OTHER ==
[~2020-01-05] VITALS: Ht 170.2 cm; Wt 79.4 kg
[2020-01-05 03:54] LABS: Urine Bacteria MANY /hpf (None Seen); Urine Blood 3+ /uL (Negative); Urine Specific Gravity 1.007 (1.001-1.035); Urine WBC 37 /hpf (0 - 3)
[2020-01-05 06:30] VITALS: BP 136/59
== END 2020-01-05 10:01 | disposition home or self-care (01) ==
LOC: ER 02:20
DX: N39.0 Urinary tract infection, site not specified (principal); F17.210 Nicotine dependence, cigarettes, uncomplicated; I11.0 Hypertensive heart disease with heart failure; I50.9 Heart failure, unspecified; K21.9 Gastro-esophageal reflux disease without esophagitis
CPT/HCPCS: 74176; 81001

== ENCOUNTER 2020-01-08 12:19 | Emergency (ER) | payer OTHER, MEDICAID ==
[~2020-01-08] VITALS: Ht 170.2 cm; Wt 77.1 kg
[2020-01-08 13:13] VITALS: BP 80/48
== END 2020-01-08 15:45 | disposition home or self-care (01) ==
LOC: ER 12:19
DX: T83.091A Other mechanical complication of indwelling urethral catheter, initial encounter (principal); I48.91 Unspecified atrial fibrillation; I11.0 Hypertensive heart disease with heart failure; I50.9 Heart failure, unspecified; K21.9 Gastro-esophageal reflux disease without esophagitis; F17.210 Nicotine dependence, cigarettes, uncomplicated; Z88.0 Allergy status to penicillin; Y83.9 Surgical procedure, unspecified as the cause of abnormal reaction of the patient, or of later complication, without mention of misadventure at the time of the procedure; Y92.89 Other specified places as the place of occurrence of the external cause

== ENCOUNTER → 2020-02-15 | Outpatient (CLI) | payer OTHER ==
[2020-02-15 10:01] LABS: Basophils # (auto) 0.1 10 ^3/uL (0-0.2); Basophils % (auto) 1.3 % (0.0-2.0); Eosinophils # (auto) 0.4 10 ^3/uL (0-0.8); Eosinophils % (auto) 6.1 % (0.0-7.0); Hematocrit 31.7 % (41.0-53.0); Hemoglobin 10.4 g/dL (13.5-17.5); Lymphocytes # (auto) 1.8 10 ^3/uL (0.4-5.4); Lymphocytes % (auto) 28.7 % (10.0-50.0); Mean Corpuscular Hemoglobin 29.9 pg (28.0-32.0); Mean Corpuscular Hgb Conc. 32.9 g/dL (32.0-36.0); Monocytes # (auto) 0.4 10 ^3/uL (0-1.3); Neutrophils # (auto) 3.5 10 ^3/uL (1.6-8.6); Neutrophils % (auto) 56.9 % (37.0-80.0); Platelet Count (auto) 229 10^3/uL (140-450); Red Blood Cells 3.49 10^6/uL (4.5-5.90); Red Cell Distribution Width 15.1 % (11.8-14.3); White Blood Cell 6.2 10^3/uL (4.4-10.8)
[2020-02-15 10:20] LABS: Albumin 3.1 g/dL (3.4-5.0); Magnesium 2.4 mg/dL (1.6-2.6); Potassium 4.6 mmol/L (3.5-5.1); Protein, Urine 14.9 mg/dL (0.0-11.9); Uric Acid 5.8 mg/dL (3.5-7.2)
[2020-02-15 10:25] LABS: BUN/Creatinine Ratio 9.5; Bilirubin, Total 0.4 mg/dL (0.2-1.0); Phosphorus 4.6 mg/dL (2.5-4.90); Total Protein 9.2 g/dL (6.4-8.2)
== END | disposition home or self-care (01) ==
LOC: LAB 09:13
PROVIDERS: ATTEND Internal Medicine Nephrology
DX: N18.3 Chronic kidney disease, stage 3 (moderate) (principal); D63.1 Anemia in chronic kidney disease; E21.3 Hyperparathyroidism, unspecified; E78.5 Hyperlipidemia, unspecified; M10.9 Gout, unspecified; R80.9 Proteinuria, unspecified; E56.9 Vitamin deficiency, unspecified
CPT/HCPCS: 36415; 80053; 80061; 82043; 82306; 82570; 83735; 83970; 84100; 84156; 84550; 85025; 87086

== ENCOUNTER → 2020-05-11 | Outpatient (CLI) | payer OTHER ==
[2020-05-11 11:33] LABS: Basophils # (auto) 0.1 10 ^3/uL (0-0.2); Eosinophils # (auto) 0.3 10 ^3/uL (0-0.8); Eosinophils % (auto) 4.8 % (0.0-7.0); Hematocrit 34.6 % (41.0-53.0); Hemoglobin 11.3 g/dL (13.5-17.5); Lymphocytes # (auto) 2.2 10 ^3/uL (0.4-5.4); Lymphocytes % (auto) 33.7 % (10.0-50.0); Mean Corpuscular Hemoglobin 28.5 pg (28.0-32.0); Mean Corpuscular Hgb Conc. 32.6 g/dL (32.0-36.0); Mean Corpuscular Volume 87.4 fL (80.0-100.0); Monocytes # (auto) 0.4 10 ^3/uL (0-1.3); Monocytes % (auto) 5.8 % (0.0-12.0); Neutrophils # (auto) 3.6 10 ^3/uL (1.6-8.6); Neutrophils % (auto) 54.7 % (37.0-80.0); Nucleated Red Blood Cells % 0.1 %; Platelet Count (auto) 196 10^3/uL (140-450); Red Blood Cells 3.96 10^6/uL (4.5-5.90); Red Cell Distribution Width 16.2 % (11.8-14.3); White Blood Cell 6.6 10^3/uL (4.4-10.8)
[2020-05-11 12:29] LABS: Potassium 4.4 mmol/L (3.5-5.1)
[2020-05-11 12:53] LABS: Albumin 3.2 g/dL (3.4-5.0); BUN/Creatinine Ratio 10.5; Bilirubin, Total 0.3 mg/dL (0.2-1.0); Calcium 9.1 mg/dL (8.5-10.1); Total Protein 9.8 g/dL (6.4-8.2); Uric Acid 4.9 mg/dL (3.5-7.2)
== END | disposition home or self-care (01) ==
LOC: LAB 11:09
PROVIDERS: ATTEND Internal Medicine Nephrology
DX: N18.30 Chronic kidney disease, stage 3 unspecified (principal); D63.1 Anemia in chronic kidney disease; E21.3 Hyperparathyroidism, unspecified; M10.9 Gout, unspecified; R80.9 Proteinuria, unspecified
CPT/HCPCS: 36415; 80053; 82043; 83970; 84100; 84550; 85025

== ENCOUNTER → 2020-08-17 | Outpatient (CLI) | payer OTHER ==
[2020-08-17 10:51] LABS: Albumin 3.3 g/dL (3.4-5.0); BUN/Creatinine Ratio 10.3; Calcium 8.9 mg/dL (8.5-10.1); Potassium 4.5 mmol/L (3.5-5.1)
[2020-08-17 10:54] LABS: Bilirubin, Total 0.3 mg/dL (0.2-1.0); Phosphorus 3.7 mg/dL (2.5-4.90)
[2020-08-17 12:18] LABS: Micro Albumin 10.1 mg/L (0-30.0)
== END | disposition home or self-care (01) ==
LOC: LAB 10:09
PROVIDERS: ATTEND Internal Medicine Nephrology
DX: N18.2 Chronic kidney disease, stage 2 (mild) (principal); E21.3 Hyperparathyroidism, unspecified; R80.9 Proteinuria, unspecified
CPT/HCPCS: 36415; 80053; 82043; 82570; 83970; 84100

== ENCOUNTER → 2020-10-01 | Outpatient (CLI) | payer OTHER ==
[2020-10-01 13:59] LABS: Urine WBC None Seen /hpf (0 - 3)
[2020-10-01 14:10] LABS: Basophils # (auto) 0 10 ^3/uL (0-0.2); Basophils % (auto) 0.6 % (0.0-2.0); Eosinophils # (auto) 0.2 10 ^3/uL (0-0.8); Eosinophils % (auto) 3.2 % (0.0-7.0); Hematocrit 33.6 % (41.0-53.0); Hemoglobin 11.4 g/dL (13.5-17.5); Lymphocytes # (auto) 1.7 10 ^3/uL (0.4-5.4); Lymphocytes % (auto) 29.7 % (10.0-50.0); Mean Corpuscular Hemoglobin 31.1 pg (28.0-32.0); Mean Corpuscular Hgb Conc. 33.9 g/dL (32.0-36.0); Mean Corpuscular Volume 91.9 fL (80.0-100.0); Monocytes # (auto) 0.5 10 ^3/uL (0-1.3); Monocytes % (auto) 8.9 % (0.0-12.0); Neutrophils # (auto) 3.4 10 ^3/uL (1.6-8.6); Neutrophils % (auto) 57.6 % (37.0-80.0); Nucleated Red Blood Cells % 0.1 %; Platelet Count (auto) 190 10^3/uL (140-450); Red Blood Cells 3.65 10^6/uL (4.5-5.90); Red Cell Distribution Width 15.3 % (11.8-14.3); Urine Bacteria FEW /hpf (None Seen); Urine Blood Negative /uL (Negative); White Blood Cell 5.9 10^3/uL (4.4-10.8)
[2020-10-01 15:33] LABS: Albumin 3.2 g/dL (3.4-5.0); BUN/Creatinine Ratio 11.2; Phosphorus 3.8 mg/dL (2.5-4.90); Potassium 4.9 mmol/L (3.5-5.1); Protein, Urine 19.2 mg/dL (0.0-11.9); Uric Acid 5.3 mg/dL (3.5-7.2)
== END | disposition home or self-care (01) ==
LOC: LAB 13:33
PROVIDERS: ATTEND Internal Medicine Nephrology
DX: N18.30 Chronic kidney disease, stage 3 unspecified (principal); D63.1 Anemia in chronic kidney disease; E21.3 Hyperparathyroidism, unspecified; M10.9 Gout, unspecified; R80.9 Proteinuria, unspecified; E55.9 Vitamin D deficiency, unspecified
CPT/HCPCS: 36415; 80069; 81001; 82306; 82570; 83970; 84156; 84550; 85025

== ENCOUNTER 2021-12-23 15:21 | Inpatient (IN) | payer OTHER, MEDICAID ==
[~2021-12-23] VITALS: Ht 170.2 cm; Wt 72.6 kg
[~2021-12-23 15:21] MED LIST changes: -DOXA4TAB5 PO; +DOXA4TAB6 PO
[2021-12-23 15:59] LABS: Basophils # (auto) 0.1 10 ^3/uL (0-0.2); Basophils % (auto) 1.6 % (0.0-2.0); Eosinophils # (auto) 0.3 10 ^3/uL (0-0.8); Eosinophils % (auto) 6.6 % (0.0-7.0); Hematocrit 30.1 % (41.0-53.0); Hemoglobin 9.8 g/dL (13.5-17.5); Lymphocytes # (auto) 1.1 10 ^3/uL (0.4-5.4); Lymphocytes % (auto) 26.7 % (10.0-50.0); Mean Corpuscular Hemoglobin 28.5 pg (28.0-32.0); Mean Corpuscular Hgb Conc. 32.4 g/dL (32.0-36.0); Mean Corpuscular Volume 87.9 fL (80.0-100.0); Monocytes # (auto) 0.5 10 ^3/uL (0-1.3); Monocytes % (auto) 12.2 % (0.0-12.0); Neutrophils # (auto) 2.1 10 ^3/uL (1.6-8.6); Neutrophils % (auto) 52.9 % (37.0-80.0); Nucleated Red Blood Cells % 0.1 %; Red Blood Cells 3.43 10^6/uL (4.5-5.90); Red Cell Distribution Width 16.1 % (11.8-14.3)
[2021-12-23 16:21] LABS: Calcium 8.6 mg/dL (8.5-10.1); Potassium 5.1 mmol/L (3.5-5.1)
[2021-12-23 16:23] LABS: BUN/Creatinine Ratio 11.4
[2021-12-23 16:26] LABS: Bilirubin, Total 0.2 mg/dL (0.2-1.0)
[2021-12-23] MEDS ORDERED: IPRATROPIUM BROM 0.5 MG/2.5ML INH SOL NEB ONE (21:45)
[2021-12-23] MEDS ORDERED: cefTRIAXone 1GM/50ML D5W 50 ML IV ONE (21:45)
[2021-12-23] MEDS ORDERED: ALBUTEROL SULF 2.5 MG/0.5ML(0.5%) NEB SOLN NEB ONE (21:45)
[2021-12-23] MEDS ORDERED: methylPREDNISolone SOD SUCC 125 MG/2 ML VL IV ONE (21:45)
[2021-12-23] MEDS ORDERED: AZITHROMYCIN 250 MG TAB PO ONE (21:45)
[2021-12-24] MEDS ORDERED: SODIUM CHLORIDE 0.9% 1,000 ML IV SCH (01:00)
[2021-12-24] MEDS ORDERED: HYDROcodone-ACET 5/325MG TAB PO PRN (01:00)
[2021-12-24] MEDS ORDERED: DOCUSATE SOD 100 MG CAP PO PRN (01:00)
[2021-12-24] MEDS ORDERED: ACETAMINOPHEN 325 MG TAB PO PRN (01:00)
[2021-12-24] MEDS ORDERED: ONDANSETRON HCL 4 MG/2 ML VIAL IV PRN (01:00)
[2021-12-24] MEDS ORDERED: MORPHINE SULFATE INJ 2 MG/ml SYRG IV PRN (01:00)
[2021-12-24 05:47] LABS: Basophils # (auto) 0 10 ^3/uL (0-0.2); Basophils % (auto) 0.5 % (0.0-2.0); Eosinophils # (auto) 0 10 ^3/uL (0-0.8); Eosinophils % (auto) 0.6 % (0.0-7.0); Hemoglobin 9.3 g/dL (13.5-17.5); Lymphocytes # (auto) 0.4 10 ^3/uL (0.4-5.4); Mean Corpuscular Hemoglobin 28.7 pg (28.0-32.0); Mean Corpuscular Hgb Conc. 32.2 g/dL (32.0-36.0); Mean Corpuscular Volume 89.3 fL (80.0-100.0); Monocytes # (auto) 0.1 10 ^3/uL (0-1.3); Monocytes % (auto) 1.9 % (0.0-12.0); Neutrophils # (auto) 3.2 10 ^3/uL (1.6-8.6); Red Blood Cells 3.25 10^6/uL (4.5-5.90); Red Cell Distribution Width 16.9 % (11.8-14.3); White Blood Cell 3.7 10^3/uL (4.4-10.8)
[2021-12-24 06:07] LABS: Calcium 8.3 mg/dL (8.5-10.1); Potassium 4.7 mmol/L (3.5-5.1)
[2021-12-24 06:10] LABS: BUN/Creatinine Ratio 11.7
[2021-12-24] MEDS ORDERED: methylPREDNISolone SOD SUCC 40 MG/ML VL IV SCH (10:00)
[2021-12-24] MEDS ORDERED: ALBUTEROL SULF 2.5 MG/0.5ML(0.5%) NEB SOLN NEB ONE (12:00)
[2021-12-24] MEDS ORDERED: IPRATROPIUM BROM 0.5 MG/2.5ML INH SOL NEB ONE (12:00)
[2021-12-24] MEDS ORDERED: FUROSEMIDE 40 MG/4 ML VIAL IV ONE (12:45)
[2021-12-24 16:58] VITALS: BP 129/78
[2021-12-24] MEDS ORDERED: cefTRIAXone 1GM/50ML D5W 50 ML IV SCH (22:00)
[2021-12-24] MEDS ORDERED: AZITHROMYCIN 500MG/ 250ML 250 ML IV SCH (22:00)
== END 2021-12-24 17:00 | disposition home or self-care (01) | DRG 202 ==
LOC: ER 15:21 → OVERFLOW 12-24 00:59
PROVIDERS: ADMIT Hospitalist; ATTEND Internal Medicine
DX: J20.9 Acute bronchitis, unspecified (principal); I50.22 Chronic systolic (congestive) heart failure; I11.0 Hypertensive heart disease with heart failure; K21.9 Gastro-esophageal reflux disease without esophagitis; I48.91 Unspecified atrial fibrillation; J44.9 Chronic obstructive pulmonary disease, unspecified; Z20.822 Contact with and (suspected) exposure to COVID-19; Z88.0 Allergy status to penicillin
CPT/HCPCS: 36415; 71045; 71250; 80048; 80053; 80061; 83036; 83880; 84484; 85025; 93005; 94640; 96365; 96375; 96376; G0378; J0696

== ENCOUNTER 2022-01-07 19:07 | Emergency (ER) | payer OTHER, MEDICAID ==
[~2022-01-07] VITALS: Ht 175.3 cm; Wt 76.3 kg
[2022-01-07 20:12] LABS: Basophils # (auto) 0.1 10 ^3/uL (0-0.2); Basophils % (auto) 1.4 % (0.0-2.0); Eosinophils # (auto) 0.2 10 ^3/uL (0-0.8); Eosinophils % (auto) 3.1 % (0.0-7.0); Hematocrit 28.8 % (41.0-53.0); Hemoglobin 9.4 g/dL (13.5-17.5); Lymphocytes # (auto) 1.4 10 ^3/uL (0.4-5.4); Lymphocytes % (auto) 24.5 % (10.0-50.0); Mean Corpuscular Hemoglobin 28.4 pg (28.0-32.0); Mean Corpuscular Hgb Conc. 32.6 g/dL (32.0-36.0); Mean Corpuscular Volume 87.3 fL (80.0-100.0); Monocytes # (auto) 0.6 10 ^3/uL (0-1.3); Monocytes % (auto) 9.6 % (0.0-12.0); Neutrophils # (auto) 3.6 10 ^3/uL (1.6-8.6); Neutrophils % (auto) 61.4 % (37.0-80.0); Red Cell Distribution Width 16.6 % (11.8-14.3); White Blood Cell 5.9 10^3/uL (4.4-10.8)
[2022-01-07 20:30] LABS: BUN/Creatinine Ratio 11.3; Calcium 8.2 mg/dL (8.5-10.1); Potassium 4.5 mmol/L (3.5-5.1)
[2022-01-07 20:32] LABS: Bilirubin, Total 0.2 mg/dL (0.2-1.0); Total Protein 9.1 g/dL (6.4-8.2)
[2022-01-07] MEDS ORDERED: IOHEXOL 350 MG/ML 100ML IJ ONE (23:29)
[2022-01-08 03:00] VITALS: BP 151/75
== END 2022-01-08 03:36 | disposition home or self-care (01) ==
LOC: ER 19:07
DX: I27.20 Pulmonary hypertension, unspecified (principal); D64.9 Anemia, unspecified; R06.00 Dyspnea, unspecified; F17.210 Nicotine dependence, cigarettes, uncomplicated; I11.0 Hypertensive heart disease with heart failure; I50.9 Heart failure, unspecified
CPT/HCPCS: 36415; 71045; 71275; 80053; 83880; 84484; 85025; 93005; 99285; Q9967

== ENCOUNTER 2023-03-09 15:59 | Inpatient (IN) | payer OTHER, MEDICAID ==
[~2023-03-09] VITALS: Ht 170.2 cm; Wt 79.6 kg
[~2023-03-09 15:59] MED LIST changes: -DOCU-94 PO; -DOXA4TAB6 PO; +DOXA4TAB83 PO; +FER325T PO; -MUPI2OIN2 EX
[2023-03-09 16:50] VITALS: PULSE 82; RESP 19; O2SAT 96
[2023-03-09 16:50] LABS: Urine Bacteria FEW /hpf (None Seen); Urine Blood Negative /uL (Negative); Urine Clarity Clear (Clear); Urine Color Colorless (Yellow); Urine Hyaline Cast FEW /lpf (0 - 2); Urine Protein, UAD Negative (Negative); Urine Specific Gravity 1.004 (1.001-1.035); Urine Urobilinogen Normal (Negative); Urine WBC 12 /hpf (0 - 3); Urine pH 5.5 (5.0-8.0)
[2023-03-09 17:17] LABS: Basophils # (auto) 0 10 ^3/uL (0-0.2); Basophils % (auto) 0.4 % (0.0-2.0); Eosinophils # (auto) 0.1 10 ^3/uL (0-0.8); Eosinophils % (auto) 1.5 % (0.0-7.0); Hematocrit 24.5 % (41.0-53.0); Hemoglobin 7.9 g/dL (13.5-17.5); Lymphocytes # (auto) 1.5 10 ^3/uL (0.4-5.4); Lymphocytes % (auto) 21.1 % (10.0-50.0); Mean Corpuscular Hemoglobin 26.2 pg (28.0-32.0); Mean Corpuscular Hgb Conc. 32.2 g/dL (32.0-36.0); Mean Corpuscular Volume 81.4 fL (80.0-100.0); Monocytes # (auto) 0.7 10 ^3/uL (0-1.3); Neutrophils # (auto) 4.6 10 ^3/uL (1.6-8.6); Red Blood Cells 3.01 10^6/uL (4.5-5.90); Red Cell Distribution Width 18.6 % (11.8-14.3); White Blood Cell 6.9 10^3/uL (4.4-10.8)
[2023-03-09 17:44] LABS: Alanine Aminotransferase 10 U/L (7-40); Albumin 2.6 g/dL (3.2-4.8); Alkaline Phosphatase 66 U/L (46-116); Anion Gap 5 (5-15); Aspartate Aminotransferase 16 U/L (13-40); BUN/Creatinine Ratio 4.2 (10.0-20.0); Bilirubin, Total 0.2 mg/dL (0.2-1.0); Blood Urea Nitrogen 6 mg/dL (9-23); Calcium 7.6 mg/dL (8.7-10.4); Carbon Dioxide 24 mmol/L (20-30); Chloride 109 mmol/L (98-107); Glucose 81 mg/dL (74-106); Potassium 4.5 mmol/L (3.5-5.1); Sodium 138 mmol/L (136-145); Total Protein 6.3 g/dL (5.7-8.2)
[2023-03-09] MEDS ORDERED: cefTRIAXone 1GM/50ML D5W 50 ML IV ONE (20:15)
[2023-03-09] MEDS ORDERED: LACTATED RINGER'S 1,000 ML IV ONE (20:15)
[2023-03-09 21:03] VITALS: PULSE 91; RESP 25; O2SAT 96
[2023-03-09] MEDS: TEMAZEPAM 15 MG CAP PO SCH ×2 (23:13→23:15)
[2023-03-10] MEDS ORDERED: ONDANSETRON HCL 4 MG/2 ML VIAL IV PRN (02:15)
[2023-03-10 07:35] VITALS: PULSE 84; RESP 16; O2SAT 0
[2023-03-10] MEDS: ACETAMINOPHEN 325 MG TAB PO PRN ×2 (09:38→20:49)
[2023-03-10] MEDS: PANTOPRAZOLE 40 MG TAB PO SCH (10:57)
[2023-03-10] MEDS: AMIODARONE HCL 200 MG TAB PO SCH (11:27)
[2023-03-10] MEDS: APIXABAN 5 MG TAB PO SCH ×2 (11:27→23:32)
[2023-03-10] MEDS ORDERED: TEMAZEPAM 15 MG CAP PO ONE ×2 (18:00→21:55)
[2023-03-11] MEDS: cefTRIAXone 1GM/50ML D5W 50 ML IV SCH ×2 (00:14→21:54)
[2023-03-11] MEDS ORDERED: TEMAZEPAM 15 MG CAP PO ONE (00:30)
[2023-03-11 07:30] VITALS: RESP 18; O2SAT 0
[2023-03-11] MEDS: AMIODARONE HCL 200 MG TAB PO SCH (09:40)
[2023-03-11] MEDS: APIXABAN 5 MG TAB PO SCH ×2 (09:40→21:55)
[2023-03-11] MEDS: PANTOPRAZOLE 40 MG TAB PO SCH (09:40)
[2023-03-11] MEDS: ACETAMINOPHEN 325 MG TAB PO PRN ×2 (16:01→22:29)
[2023-03-11 16:40] LABS: Basophils # (auto) 0.1 10 ^3/uL (0-0.2); Eosinophils # (auto) 0.1 10 ^3/uL (0-0.8); Hematocrit 25.5 % (41.0-53.0); Hemoglobin 8.1 g/dL (13.5-17.5); Lymphocytes # (auto) 1.3 10 ^3/uL (0.4-5.4); Lymphocytes % (auto) 21.4 % (10.0-50.0); Mean Corpuscular Hgb Conc. 31.8 g/dL (32.0-36.0); Mean Corpuscular Volume 81.8 fL (80.0-100.0); Monocytes # (auto) 0.6 10 ^3/uL (0-1.3); Monocytes % (auto) 10.7 % (0.0-12.0); Neutrophils # (auto) 3.9 10 ^3/uL (1.6-8.6); Neutrophils % (auto) 64.9 % (37.0-80.0); Red Blood Cells 3.12 10^6/uL (4.5-5.90); White Blood Cell 6.1 10^3/uL (4.4-10.8)
[2023-03-11 17:17] LABS: Chloride 107 mmol/L (98-107); Potassium 4.1 mmol/L (3.5-5.1); Sodium 138 mmol/L (136-145)
[2023-03-11 17:19] LABS: Calcium 7.8 mg/dL (8.7-10.4); Carbon Dioxide 24 mmol/L (20-30)
[2023-03-11 17:24] LABS: BUN/Creatinine Ratio 3.8 (10.0-20.0); Blood Urea Nitrogen 6 mg/dL (9-23); Glucose 80 mg/dL (74-106)
[2023-03-11 17:43] LABS: Anion Gap 12 (5-15)
[2023-03-11] MEDS: TEMAZEPAM 15 MG CAP PO SCH (21:55)
[2023-03-11 22:00] VITALS: BP 116/72; PULSE 93; RESP 18; TEMP 98.4; O2SAT 96
[2023-03-11 23:21] VITALS: O2SAT 96
[2023-03-12 05:00] VITALS: BP 137/78; PULSE 89; RESP 20; TEMP 98.1; O2SAT 94
[2023-03-12 08:00] VITALS: O2SAT 98
[2023-03-12 08:47] LABS: INR 1.35 (0.9-1.15); Partial Thromboplastin Time 31.6 SEC (24.5-34.5); Prothrombin Time 13.9 sec (9.3-11.8)
[2023-03-12 08:54] LABS: Calcium 8.1 mg/dL (8.5-10.1); Carbon Dioxide 23 mmol/L (20-30)
[2023-03-12 08:59] LABS: BUN/Creatinine Ratio 3.8 (10.0-20.0); Blood Urea Nitrogen 6 mg/dL (9-23); Glucose 81 mg/dL (74-106)
[2023-03-12 09:00] VITALS: BP 141/72; PULSE 89; RESP 18; TEMP 98.3; O2SAT 98
[2023-03-12 09:05] LABS: Erythrocyte Sedimentation Rate 102 mm/hr (0-20)
[2023-03-12 09:24] LABS: Anion Gap 8 (5-15); Chloride 104 mmol/L (98-107); Sodium 135 mmol/L (136-145)
[2023-03-12] MEDS: APIXABAN 5 MG TAB PO SCH (09:41)
[2023-03-12] MEDS: PANTOPRAZOLE 40 MG TAB PO SCH (09:41)
[2023-03-12] MEDS: AMIODARONE HCL 200 MG TAB PO SCH (09:42)
[2023-03-12 10:22] LABS: Basophils # (auto) 0 10 ^3/uL (0-0.2); Basophils % (auto) 0.7 % (0.0-2.0); Eosinophils # (auto) 0.1 10 ^3/uL (0-0.8); Lymphocytes # (auto) 0.9 10 ^3/uL (0.4-5.4); Monocytes # (auto) 0.7 10 ^3/uL (0-1.3)
[2023-03-12 10:24] LABS: Eosinophils % (auto) 1.6 % (0.0-7.0); Hematocrit 25.2 % (41.0-53.0); Hemoglobin 8.1 g/dL (13.5-17.5); Lymphocytes % (auto) 15.1 % (10.0-50.0); Mean Corpuscular Hemoglobin 26.6 pg (28.0-32.0); Mean Corpuscular Hgb Conc. 32.2 g/dL (32.0-36.0); Mean Corpuscular Volume 82.7 fL (80.0-100.0); Monocytes % (auto) 11.9 % (0.0-12.0); Neutrophils % (auto) 70.7 % (37.0-80.0); Red Blood Cells 3.04 10^6/uL (4.5-5.90); Red Cell Distribution Width 19.3 % (11.8-14.3); White Blood Cell 5.6 10^3/uL (4.4-10.8)
[2023-03-12 12:31] VITALS: BP 143/76; PULSE 92; RESP 17; TEMP 97.9; O2SAT 98
[2023-03-12 16:35] VITALS: BP 154/85; PULSE 92; RESP 17; TEMP 99; O2SAT 97
[2023-03-12] MEDS ORDERED: BACDST PO (16:35)
[2023-03-12 17:51] VITALS: TEMP 37.2
[2023-03-12] MEDS: ACETAMINOPHEN 325 MG TAB PO PRN (18:34)
[2023-03-12 20:36] LABS: Body Fluid Polymorphonuclear 90 % (0-25); Body Fluid Red Blood Cells 138 CUMM (0-2000); Body Fluid White Blood Cells 2775 CUMM (0-200)
[2023-03-12] MEDS ORDERED: MUPIROCIN 2% OINT 15gm or 22gm FOR MRSA NARES EACHNOSTRI SCH (22:00)
== END 2023-03-12 20:11 | DRG 641 ==
LOC: EDUNIT# 15:59 → EDBD 15:59 → ER 15:59 → OVERFLOW 03-10 02:15 → WEST WING 03-11 21:25
PROVIDERS: ADMIT Internal Medicine; ATTEND Student in an Organized Health Care Education/Training Program
DX: R62.7 Adult failure to thrive (principal); J98.11 Atelectasis; J90 Pleural effusion, not elsewhere classified; D68.9 Coagulation defect, unspecified; N39.0 Urinary tract infection, site not specified; I13.0 Hypertensive heart and chronic kidney disease with heart failure and stage 1 through stage 4 chronic kidney disease, or unspecified chronic kidney disease; E46 Unspecified protein-calorie malnutrition; I48.20 Chronic atrial fibrillation, unspecified; M17.11 Unilateral primary osteoarthritis, right knee; N18.9 Chronic kidney disease, unspecified; D64.9 Anemia, unspecified; I50.9 Heart failure, unspecified; R32 Unspecified urinary incontinence; D63.8 Anemia in other chronic diseases classified elsewhere; Z68.27 Body mass index [BMI] 27.0-27.9, adult; Z88.0 Allergy status to penicillin; Z88.8 Allergy status to other drugs, medicaments and biological substances; Z82.49 Family history of ischemic heart disease and other diseases of the circulatory system; Z88.6 Allergy status to analgesic agent; Z91.81 History of falling
CPT/HCPCS: 36415; 71045; 71250; 73562; 75989; 76881; 80048; 80053; 81001; 83880; 84484; 85025; 85610; 85652; 85730; 86141; 87081; 87205; 89051; 93005; 97110; 97163; 97530; G0378; J0696

== ENCOUNTER 2023-09-02 18:18 | Inpatient (IN) | payer OTHER, MEDICARE, MEDICAID ==
[~2023-09-02] VITALS: Ht 172.7 cm; Wt 62.9 kg
[~2023-09-02 18:18] MED LIST changes: +BACDST PO
[2023-09-02] MEDS: DEXTROSE 10% 1,000 ML IV ONE (18:45)
[2023-09-02] MEDS: GLUCAGON EMERG KIT 1mg/1ml IM ONE (18:54)
[2023-09-02] MEDS: DEXTROSE (50%) 50ML SYRG IV ONE (18:55)
[2023-09-02] MEDS: SODIUM CHLORIDE 0.9% 1,000 ML IV ONE (19:04)
[2023-09-02 19:07] VITALS: O2SAT 94
[2023-09-02 19:08] LABS: Basophils # (auto) 0 10 ^3/uL (0-0.2); Basophils % (auto) 0.7 % (0.0-2.0); Eosinophils # (auto) 0 10 ^3/uL (0-0.8); Eosinophils % (auto) 0.4 % (0.0-7.0); Hematocrit 32.2 % (41.0-53.0); Hemoglobin 10.6 g/dL (13.5-17.5); Lymphocytes # (auto) 1.7 10 ^3/uL (0.4-5.4); Mean Corpuscular Hemoglobin 28.5 pg (28.0-32.0); Mean Corpuscular Hgb Conc. 32.9 g/dL (32.0-36.0); Mean Corpuscular Volume 86.5 fL (80.0-100.0); Monocytes # (auto) 0.3 10 ^3/uL (0-1.3); Neutrophils # (auto) 2.7 10 ^3/uL (1.6-8.6); Neutrophils % (auto) 56.9 % (37.0-80.0); Nucleated Red Blood Cells % 0.3 %; Red Blood Cells 3.72 10^6/uL (4.5-5.90); Red Cell Distribution Width 18.3 % (11.8-14.3); White Blood Cell 4.8 10^3/uL (4.4-10.8)
[2023-09-02 19:30] VITALS: RESP 19; O2SAT 90
[2023-09-02 19:36] LABS: Alanine Aminotransferase 55 U/L (7-40); Albumin 1.6 g/dL (3.2-4.8); Alkaline Phosphatase 114 U/L (46-116); Anion Gap 9 (5-15); Aspartate Aminotransferase 22 U/L (13-40); BUN/Creatinine Ratio 8.7 (10.0-20.0); Blood Urea Nitrogen 17 mg/dL (9-23); Calcium 7.3 mg/dL (8.7-10.4); Carbon Dioxide 23 mmol/L (20-30); Chloride 107 mmol/L (98-107); Glucose 73 mg/dL (74-106); Potassium 3.4 mmol/L (3.5-5.1); Sodium 139 mmol/L (136-145)
[2023-09-02 19:37] LABS: Bilirubin, Total 1.4 mg/dL (0.2-1.0); Total Protein 5.6 g/dL (5.7-8.2)
[2023-09-02] MEDS ORDERED: ACETAMINOPHEN 325 MG TAB PO PRN (21:00)
[2023-09-02] MEDS: POTASSIUM CHL 20MEQ/100ML 100 ML IV ONE (21:23)
[2023-09-02] MEDS: D5W/SOD CHLO 0.9% 1,000 ML IV SCH (21:23)
[2023-09-02] MEDS: DOXAZOSIN MESYL 2 MG TAB PO SCH (22:00)
[2023-09-02] MEDS: APIXABAN 2.5 MG TAB PO SCH (22:00)
[2023-09-02] MEDS: ONDANSETRON HCL 4 MG/2 ML VIAL IV PRN (22:07)
[2023-09-02] MEDS: metroNIDAZOLE 500MG/100ML 100 ML IV SCH (23:57)
[2023-09-03] VITALS (11 sets, daily range): BP systolic 88–107; BP diastolic 54–71; PULSE 18–110; RESP 15–20; TEMP 97.5–98.6; O2SAT 95–100
[2023-09-03] MEDS: levoFLOXacin 500MG 100 ML IV ONE (00:09)
[2023-09-03] MEDS: ALBUMIN 5% 250 ML IV ONE (01:13)
[2023-09-03 07:04] LABS: Anion Gap 8 (5-15); Carbon Dioxide 20 mmol/L (20-30); Chloride 113 mmol/L (98-107); Potassium 3.6 mmol/L (3.5-5.1); Sodium 141 mmol/L (136-145)
[2023-09-03 07:05] LABS: Calcium 6.4 mg/dL (8.5-10.1)
[2023-09-03 07:10] LABS: BUN/Creatinine Ratio 9.9 (10.0-20.0); Blood Urea Nitrogen 17 mg/dL (9-23); Glucose 112 mg/dL (74-106)
[2023-09-03] MEDS: AMIODARONE HCL 200 MG TAB PO SCH (10:00)
[2023-09-03] MEDS ORDERED: levoFLOXacin 250MG 50 ML IV SCH (10:00)
[2023-09-03] MEDS ORDERED: METO25TA93 PO (17:11)
[2023-09-03] MEDS ORDERED: DICY20TA PO (17:12)
[2023-09-03] MEDS: PANTOPRAZOLE 40 MG TAB PO ONE (19:35)
[2023-09-03] MEDS: MUPIROCIN 2% OINT 15gm or 22gm FOR MRSA NARES EACHNOSTRI SCH (23:07)
[2023-09-04] VITALS (8 sets, daily range): BP systolic 91–100; BP diastolic 54–76; PULSE 61–102; RESP 16–20; TEMP 97.3–98.1; O2SAT 92–97
[2023-09-04] MEDS: PANTOPRAZOLE 40 MG TAB PO SCH (10:06)
[2023-09-04] MEDS: cefTRIAXone 1GM/50ML D5W 50 ML IV SCH (10:07)
[2023-09-04] MEDS: VANCOMYCIN HCL 125 MG CAP PO SCH (18:33)
[2023-09-04] MEDS ORDERED: levoFLOXacin 250MG 50 ML IV SCH (22:00)
[2023-09-05] MEDS ORDERED: MELATONIN 5 MG TAB PO ONE (00:45)
[2023-09-05] MEDS: MELATONIN 5 MG TAB PO ONE (00:58)
[2023-09-05 08:00] VITALS: PULSE 96
[2023-09-05 08:38] VITALS: BP 99/65; PULSE 83; RESP 18; TEMP 97.4; O2SAT 94
[2023-09-05 12:48] VITALS: BP 104/66; PULSE 101; RESP 18; TEMP 97.5; O2SAT 99
[2023-09-05] MEDS ORDERED: APIXABAN 5 MG TAB PO SCH (22:00)
== END 2023-09-05 14:30 | DRG 871 ==
LOC: ER 18:18 → EDBD 18:18 → OVERFLOW 21:02 → CENTRAL 21:02 → TELE-CENTR 09-03 08:28
PROVIDERS: ADMIT Nurse Practitioner; ATTEND Family Medicine
PROC: 05HA33Z Insertion of Infusion Device into Left Brachial Vein, Percutaneous Approach (ICD-10-PCS; principal; 2023-09-05)
PROC: B54NZZA Ultrasonography of Left Upper Extremity Veins, Guidance (ICD-10-PCS; 2023-09-05)
DX: A41.9 Sepsis, unspecified organism (principal); E43 Unspecified severe protein-calorie malnutrition; N17.9 Acute kidney failure, unspecified; E87.21 Acute metabolic acidosis; A04.72 Enterocolitis due to Clostridium difficile, not specified as recurrent; K55.9 Vascular disorder of intestine, unspecified; I50.9 Heart failure, unspecified; E16.2 Hypoglycemia, unspecified; G30.9 Alzheimer's disease, unspecified; F02.80 Dementia in other diseases classified elsewhere, unspecified severity, without behavioral disturbance, psychotic disturbance, mood disturbance, and anxiety; I11.0 Hypertensive heart disease with heart failure; I95.9 Hypotension, unspecified; I48.91 Unspecified atrial fibrillation; K21.9 Gastro-esophageal reflux disease without esophagitis; Z51.5 Encounter for palliative care; Z88.0 Allergy status to penicillin; Z88.6 Allergy status to analgesic agent; Z85.46 Personal history of malignant neoplasm of prostate; Z79.899 Other long term (current) drug therapy; Z68.21 Body mass index [BMI] 21.0-21.9, adult; Z82.49 Family history of ischemic heart disease and other diseases of the circulatory system
CPT/HCPCS: 36415; 70450; 71045; 71250; 72125; 74176; 80048; 80053; 82962; 83605; 83880; 84484; 85025; 85379; 87040; 87081; 87493; 93005; 96361; 96374; 97163; G0378; J1956; J2405; J3480; J3490; J7042